=== PATIENT | male | born 1990 | race African-American/Black ===

== ENCOUNTER 2019-09-15 19:59 | Inpatient (IN) | payer SELFPAY ==
[~2019-09-15] VITALS: Ht 167.6 cm; Wt 131.5 kg
[2019-09-15] MEDS ORDERED: ACETAMINOPHEN 325MG TABLET PO ONE (21:15)
[2019-09-15] MEDS ORDERED: CLONIDINE 0.2MG TABLET PO ONE (21:15)
[2019-09-15 21:34] LABS: BG BASE EXCESS -0.1 mmol/L (-2.0-2.0); BG CARBOXYHEMOGLOBIN 4.2 % (0.5-1.5); BG DEOXYHEMOGLOBIN 0.9 % (0.0-5.0); BG FRACTION INSPIRED OXYGEN 28; BG HCO3 ACT 19.4 mmol/L (22.0-26.0); BG METHEMOGLOBIN 0.3 % (0.0-1.5); BG OXYGEN SATURATION 99.1 % (92.0-98.5); BG OXYHEMOGLOBIN 94.6 % (94.0-97.0); BG PCO2 21.3 mmHg (35.0-45.0); BG PH 7.577 (7.350-7.450); BG PO2 136.1 mmHg (75.0-100.0); BG SAMPLE SITE LEFT RADIAL; BG TOTAL HEMOGLOBIN 15.7 g/dL (12.0-18.0); BG VENT MODE NASAL CANNULA
[2019-09-15] MEDS ORDERED: MORPHINE SULFATE 2 MG/ML CPJ (NOT FOR IM USE) IV PRN (22:30)
[2019-09-15] MEDS ORDERED: MAGNESIUM/ALUMINUM HYDROXIDE/SIMETHICONE 30ML UDC PO PRN (22:30)
[2019-09-15] MEDS ORDERED: HYDROCODONE/ACETAMINOPHEN 5/325MG TABLET PO PRN (22:30)
[2019-09-15] MEDS ORDERED: CLONIDINE 0.1MG TABLET PO PRN (22:30)
[2019-09-15] MEDS ORDERED: ACETAMINOPHEN 325MG TABLET PO PRN (22:30)
[2019-09-15] MEDS ORDERED: ONDANSETRON HCL 4MG/2ML INJ IV PRN (22:30)
[2019-09-15] MEDS ORDERED: DOCUSATE SODIUM 100MG CAPSULE PO PRN (22:30)
[2019-09-15 22:57] LABS: BASOPHILS % 0.8 % (0.0-2.0); HEMATOCRIT. 42.6 % (42.0-52.0); HEMOGLOBIN. 15.1 g/dL (14.0-18.0); LYMPHOCYTES % 16.9 % (20.0-50.0); MEAN CORPUSCULAR HEMOGLOBIN 30.2 pg (28.0-32.0); MEAN CORPUSCULAR VOLUME 85.3 fL (80.0-94.0); MEAN PLATELET VOLUME 9.5 fl (7.4-10.4); MONOCYTES % 7.9 % (2.0-8.0); NEUTROPHILS % 73.4 % (40.0-76.0); PLATELET 166 x1000/uL (130-400); RED BLOOD CELL COUNT 4.99 mill/uL (4.7-6.1); RED CELL DISTRIBUTION WIDTH 13.6 % (11.6-14.6)
[2019-09-15] MEDS: AMLODIPINE 10MG TABLET PO SCH (23:00)
[2019-09-15 23:03] LABS: CHLORIDE 109 mEq/L (98-107)
[2019-09-15 23:07] LABS: ETHANOL BLOOD < 10 mg/dL
[2019-09-15 23:42] LABS: CLARITY URINE CLEAR (CLEAR); COLOR URINE YELLOW (YELLOW); KETONES URINE NEGATIVE (NEGATIVE); LEUKOCYTE ESTERASE URINE NEGATIVE (NEGATIVE); NITRITE URINE NEGATIVE (NEGATIVE); OCCULT BLOOD URINE NEGATIVE (NEGATIVE); PROTEIN URINE NEGATIVE (NEGATIVE); SPECIFIC GRAVITY URINE 1.005 (1.005-1.030); UROBILINOGEN URINE 0.2 E.U./dL (0.2-1.0)
[2019-09-16 00:36] LABS: *AMPHETAMINES SCREEN URINE NEGATIVE (NEGATIVE); *BARBITURATES SCREEN URINE NEGATIVE (NEGATIVE); *BENZODIAZEPINES SCREEN URINE NEGATIVE (NEGATIVE); *COCAINE SCREEN URINE NEGATIVE (NEGATIVE)
[2019-09-16 00:37] LABS: CANNABINOID URINE SCREEN NEGATIVE (NEGATIVE); METHADONE URINE SCREEN NEGATIVE (NEGATIVE); OPIATES URINE SCREEN NEGATIVE (NEGATIVE); PHENCYCLIDINE URINE SCREEN NEGATIVE (NEGATIVE)
[2019-09-16] MEDS: SODIUM CHLORIDE 0.45% 1,000 ML IV SCH ×2 (01:15→14:04)
[2019-09-16] MEDS: METOPROLOL TARTRATE 25MG TABLET PO SCH ×3 (09:50→23:07)
[2019-09-16] MEDS: LISINOPRIL 20MG TABLET PO SCH ×2 (09:52→09:58)
[2019-09-16] MEDS: AMLODIPINE 10MG TABLET PO SCH (09:58)
[2019-09-16 12:00] VITALS: BP 144/92
[2019-09-16 12:20] VITALS: BP 149/99
[2019-09-16] MEDS: INSULIN LISPRO 100 UNITS/ML SUBCUT SCH ×3 (12:54→21:00)
[2019-09-16] MEDS: BLOOD SUGAR DIAGNOSTIC STRIP TEST SCH ×3 (13:00→21:10)
[2019-09-16] MEDS ORDERED: DEXTROSE 50% WATER 50ML SYRINGE IV PRN (13:00)
[2019-09-16 20:00] VITALS: BP 138/85
[2019-09-17] VITALS (7 sets, daily range): BP systolic 103–156; BP diastolic 55–94
[2019-09-17] MEDS: SODIUM CHLORIDE 0.45% 1,000 ML IV SCH (06:16)
[2019-09-17] MEDS: BLOOD SUGAR DIAGNOSTIC STRIP TEST SCH ×4 (06:35→21:19)
[2019-09-17] MEDS: INSULIN LISPRO 100 UNITS/ML SUBCUT SCH ×4 (06:55→21:00)
[2019-09-17] MEDS: METOPROLOL TARTRATE 25MG TABLET PO SCH ×3 (08:55→20:57)
[2019-09-17] MEDS: AMLODIPINE 10MG TABLET PO SCH ×2 (08:55→17:59)
[2019-09-17] MEDS: LISINOPRIL 20MG TABLET PO SCH ×2 (08:56→17:59)
[2019-09-17] MEDS ORDERED: MIDODRINE HCL 5MG TABLET ONE (18:11)
[2019-09-17] MEDS ORDERED: METOPROLOL TARTRATE 25MG TABLET ONE (20:56)
[2019-09-18] VITALS: BP 155/69
[2019-09-18] MEDS: SODIUM CHLORIDE 0.45% 1,000 ML IV SCH (00:22)
[2019-09-18 04:00] VITALS: BP 116/74
[2019-09-18] MEDS: INSULIN LISPRO 100 UNITS/ML SUBCUT SCH (06:49)
[2019-09-18] MEDS: BLOOD SUGAR DIAGNOSTIC STRIP TEST SCH (06:49)
[2019-09-18 08:00] VITALS: BP 144/95
[2019-09-18] MEDS ORDERED: LISINOPRIL 20MG TABLET ONE (08:19)
[2019-09-18] MEDS ORDERED: METOPROLOL TARTRATE 25MG TABLET ONE (08:19)
[2019-09-18] MEDS ORDERED: AMLODIPINE 10MG TABLET ONE (08:19)
[2019-09-18] MEDS: LISINOPRIL 20MG TABLET PO SCH (08:20)
[2019-09-18] MEDS: AMLODIPINE 10MG TABLET PO SCH (08:20)
[2019-09-18] MEDS: METOPROLOL TARTRATE 25MG TABLET PO SCH (08:21)
== END 2019-09-18 11:00 | disposition home or self-care (01) | DRG 145 ==
LOC: ER 19:59 → 7WST 22:06 → EDBEDREQ 22:12 → EDBEDREQTM 22:12 → ENRESERV 09-16 10:29 → CANRESERV 09-16 10:30 → 7EST 09-16 16:21
PROVIDERS: ADMIT Hospitalist; ATTEND Hospitalist
DX: R06.02 Shortness of breath (principal); E66.01 Morbid (severe) obesity due to excess calories; E11.9 Type 2 diabetes mellitus without complications; I10 Essential (primary) hypertension; F17.210 Nicotine dependence, cigarettes, uncomplicated; G47.33 Obstructive sleep apnea (adult) (pediatric); Z68.42 Body mass index [BMI] 45.0-49.9, adult
CPT/HCPCS: 36415; 36600; 71045; 80053; 80305; 80320; 81003; 82375; 82805; 82962; 83036; 83605; 83880; 84145; 84484; 85025; 87635; 93005; 99291; J2270; G0480; U0002